=== PATIENT | female | born 1945 | race African-American/Black ===

== ENCOUNTER 2022-04-19 20:51 | Inpatient (IN) | payer MEDICARE ==
[2022-04-19] MEDS ORDERED: D5 1/2 NS w/20 mEq KCL 1,000 ML IV SCH (22:45)
[2022-04-19] MEDS ORDERED: Ondansetron PF 4 MG/2 ML Vial IVP PRN (22:45)
[2022-04-19] MEDS ORDERED: Acetaminophen 325 MG TAB PO PRN (22:51)
[2022-04-19 22:57] VITALS: BMI 29.0
[2022-04-19] MEDS ORDERED: Dextrose 5% in Water 1,000 ML IV PRN (23:12)
[2022-04-19] MEDS ORDERED: HumaLOG 300 UNITS/3 ML VIAL SC PRN ×2 (23:12)
[2022-04-19] MEDS ORDERED: Dextrose 50% Abboject 50 ML SYRINGE SLOW IVP PRN (23:12)
[2022-04-19 23:57] LABS: Anion Gap 15 mmol/L (10-20); BUN (Urea Nitrogen) 17 mg/dL (9.8-20.1); Calc. Creatinine Clearance 81 mL/min (70-130); Calcium 10.4 mg/dL (7.8-10.44); Carbon Dioxide 25 mmol/L (23-31); Chloride 110 mmol/L (98-107); Estimated GFR 91; Glucose 130 mg/dL (83-110); Sodium 146 mmol/L (136-145)
[2022-04-19] MEDS ORDERED: Vancomycin 1.5 GRAM/300 ML BAG 1.5 GM in Premix Bag 1 BAG IVPB SCH (23:59)
[2022-04-20] MEDS ORDERED: Dextrose 5 %-0.45 % NaCl 1,000 ML IV SCH (00:30)
[2022-04-20] MEDS ORDERED: Lactated Ringer's 1,000 ML IV SCH (00:45)
[2022-04-20] MEDS: Lactated Ringer's 1,000 ML IV SCH ×3 (00:54→17:20)
[2022-04-20] MEDS: Vancomycin 1 GM in Premix Bag 1 BAG IVPB SCH ×2 (06:05→17:20)
[2022-04-20 06:29] LABS: #Basophils 0.1 thou/uL (0.0-0.2); #Eosinphils 0.3 thou/uL (0.0-0.7); #Lymphocytes 1.7 thou/uL (1.20-3.40); #Monocytes 0.7 thou/uL (0.11-0.59); %Basophils 0.6 % (0.0-1.0); %Eosinophils 3.2 % (0.0-10.0); %Lymphocytes 16.1 % (21.0-51.0); %Monocytes 6.3 % (0.0-10.0); %Neutrophils 73.8 % (42.0-75.0); Hemoglobin 10.5 g/dL (12.0-16.0); Mean Corpuscular HGB CONC 30.8 g/dL (32.0-36.0); Mean Corpuscular Hemoglobin 29.9 pg (27.0-31.0); Mean Platelet Volume 10.6 fL (7.4-10.4); Platelet Count 235 thou/uL (130-400); RBC Distribution Width 14.9 % (11.5-14.5); Red Blood Cell (RBC) Count 3.52 mill/uL (4.20-5.40); White Blood Cell (WBC) Count 10.8 thou/uL (4.8-10.8)
[2022-04-20 06:33] LABS: Hemoglobin A1c 5.3 % (4.0-6.0)
[2022-04-20 06:47] LABS: Anion Gap 14 mmol/L (10-20); BUN (Urea Nitrogen) 15 mg/dL (9.8-20.1); Calc. Creatinine Clearance 86 mL/min (70-130); Calcium 10.1 mg/dL (7.8-10.44); Carbon Dioxide 24 mmol/L (23-31); Chloride 112 mmol/L (98-107); Estimated GFR 92; Glucose 121 mg/dL (83-110); Potassium 3.8 mmol/L (3.5-5.1); Sodium 146 mmol/L (136-145)
[2022-04-20] MEDS: Amlodipine 5 MG TAB PO SCH (09:33)
[2022-04-20] MEDS: Aspirin 325 MG TAB PO SCH (09:33)
[2022-04-20] MEDS: Famotidine 20 MG TAB PO SCH ×2 (09:33→20:53)
[2022-04-20] MEDS: Lisinopril 20 MG TAB PO SCH (09:35)
[2022-04-20] MEDS: Enoxaparin Sodium 40 MG/0.4 ML SYRINGE SC SCH (09:35)
[2022-04-20] MEDS: Atorvastatin Calcium 40 MG TAB PO SCH (20:53)
[2022-04-20] MEDS ORDERED: Cefepime 2 GM in Sodium Chloride 0.9% 100 ML IVPB SCH (22:00)
[2022-04-20] MEDS: Cefepime 2 GM in Sodium Chloride 0.9% 100 ML IVPB SCH (23:49)
[2022-04-21 06:40] LABS: Vancomycin, Trough 22.1 ug/mL
[2022-04-21 06:41] LABS: Anion Gap 15 mmol/L (10-20); BUN (Urea Nitrogen) 12 mg/dL (9.8-20.1); Calc. Creatinine Clearance 86 mL/min (70-130); Calcium 9.9 mg/dL (7.8-10.44); Carbon Dioxide 22 mmol/L (23-31); Chloride 107 mmol/L (98-107); Estimated GFR 92; Glucose 126 mg/dL (83-110); Potassium 3.8 mmol/L (3.5-5.1); Sodium 140 mmol/L (136-145)
[2022-04-21] MEDS: Lactated Ringer's 1,000 ML IV SCH ×2 (07:12→20:59)
[2022-04-21] MEDS: Vancomycin 1 GM in Premix Bag 1 BAG IVPB SCH ×2 (07:12→18:37)
[2022-04-21] MEDS: Lisinopril 20 MG TAB PO SCH (08:52)
[2022-04-21] MEDS: Amlodipine 5 MG TAB PO SCH (08:52)
[2022-04-21] MEDS: Enoxaparin Sodium 40 MG/0.4 ML SYRINGE SC SCH (08:52)
[2022-04-21] MEDS: Famotidine 20 MG TAB PO SCH ×2 (08:52→22:36)
[2022-04-21] MEDS: Cefepime 2 GM in Sodium Chloride 0.9% 100 ML IVPB SCH ×3 (08:52→23:50)
[2022-04-21] MEDS: Aspirin 325 MG TAB PO SCH (08:52)
[2022-04-21] MEDS: Atorvastatin Calcium 40 MG TAB PO SCH (22:36)
[2022-04-22 05:26] LABS: #Basophils 0.1 thou/uL (0.0-0.2); #Eosinphils 0.3 thou/uL (0.0-0.7); #Lymphocytes 1.5 thou/uL (1.20-3.40); #Monocytes 0.5 thou/uL (0.11-0.59); #Neutrophils 5.2 thou/uL (1.40-6.50); %Basophils 1.2 % (0.0-1.0); %Eosinophils 4.2 % (0.0-10.0); %Lymphocytes 19.9 % (21.0-51.0); %Neutrophils 67.7 % (42.0-75.0); Hemoglobin 11.8 g/dL (12.0-16.0); Mean Corpuscular HGB CONC 32.5 g/dL (32.0-36.0); Mean Corpuscular Hemoglobin 30.7 pg (27.0-31.0); Mean Corpuscular Volume 94.5 fL (78.0-98.0); Mean Platelet Volume 9.9 fL (7.4-10.4); Platelet Count 283 thou/uL (130-400); RBC Distribution Width 14.6 % (11.5-14.5); Red Blood Cell (RBC) Count 3.83 mill/uL (4.20-5.40); White Blood Cell (WBC) Count 7.7 thou/uL (4.8-10.8)
[2022-04-22 05:48] LABS: Vancomycin, Trough 29.3 ug/mL
[2022-04-22 05:50] LABS: Anion Gap 14 mmol/L (10-20); BUN (Urea Nitrogen) 9 mg/dL (9.8-20.1); Calc. Creatinine Clearance 92 mL/min (70-130); Calcium 10.3 mg/dL (7.8-10.44); Carbon Dioxide 27 mmol/L (23-31); Chloride 103 mmol/L (98-107); Estimated GFR 94; Glucose 151 mg/dL (83-110); Potassium 3.6 mmol/L (3.5-5.1); Sodium 140 mmol/L (136-145)
[2022-04-22] MEDS: Vancomycin 1 GM in Premix Bag 1 BAG IVPB SCH (06:33)
[2022-04-22] MEDS: Enoxaparin Sodium 40 MG/0.4 ML SYRINGE SC SCH (09:22)
[2022-04-22] MEDS: Cefepime 2 GM in Sodium Chloride 0.9% 100 ML IVPB SCH ×2 (09:22→17:28)
[2022-04-22] MEDS: Famotidine 20 MG TAB PO SCH ×2 (09:23→22:46)
[2022-04-22] MEDS: Lisinopril 20 MG TAB PO SCH (09:23)
[2022-04-22] MEDS: Amlodipine 5 MG TAB PO SCH (09:23)
[2022-04-22] MEDS: Aspirin 325 MG TAB PO SCH (09:23)
[2022-04-22] MEDS: Lactated Ringer's 1,000 ML IV SCH ×2 (09:24→17:28)
[2022-04-22 17:26] LABS: Vancomycin, Random 17.6 ug/mL (See Comment)
[2022-04-22] MEDS ORDERED: Vancomycin 0.01 GM in Premix Bag 1 BAG IVPB SCH (18:00)
[2022-04-22] MEDS: Vancomycin HCl 750 MG in Sodium Chloride 0.9% 250 ML 250 ML IVPB SCH (22:46)
[2022-04-22] MEDS: Atorvastatin Calcium 40 MG TAB PO SCH (22:46)
[2022-04-23] MEDS: Cefepime 2 GM in Sodium Chloride 0.9% 100 ML IVPB SCH ×2 (00:45→08:54)
[2022-04-23] MEDS: Lactated Ringer's 1,000 ML IV SCH ×2 (01:41→15:32)
[2022-04-23 07:01] LABS: Anion Gap 14 mmol/L (10-20); BUN (Urea Nitrogen) 16 mg/dL (9.8-20.1); Calc. Creatinine Clearance 94 mL/min (70-130); Calcium 10.3 mg/dL (7.8-10.44); Carbon Dioxide 26 mmol/L (23-31); Chloride 103 mmol/L (98-107); Estimated GFR 94; Glucose 156 mg/dL (83-110); Potassium 4.3 mmol/L (3.5-5.1); Sodium 139 mmol/L (136-145)
[2022-04-23] MEDS: Vancomycin HCl 750 MG in Sodium Chloride 0.9% 250 ML 250 ML IVPB SCH (07:22)
[2022-04-23] MEDS: Amlodipine 5 MG TAB PO SCH (08:53)
[2022-04-23] MEDS: Aspirin 325 MG TAB PO SCH (08:53)
[2022-04-23] MEDS: Famotidine 20 MG TAB PO SCH ×2 (08:54→23:23)
[2022-04-23] MEDS: Enoxaparin Sodium 40 MG/0.4 ML SYRINGE SC SCH (08:54)
[2022-04-23] MEDS: Lisinopril 20 MG TAB PO SCH (08:54)
[2022-04-23 09:15] LABS: #Basophils 0.1 thou/uL (0.0-0.2); #Eosinphils 0.4 thou/uL (0.0-0.7); #Lymphocytes 1.7 thou/uL (1.20-3.40); #Monocytes 0.8 thou/uL (0.11-0.59); #Neutrophils 5.2 thou/uL (1.40-6.50); %Basophils 0.7 % (0.0-1.0); %Eosinophils 4.6 % (0.0-10.0); %Lymphocytes 20.5 % (21.0-51.0); %Neutrophils 64.2 % (42.0-75.0); Hemoglobin 11.2 g/dL (12.0-16.0); Mean Corpuscular HGB CONC 31.9 g/dL (32.0-36.0); Mean Corpuscular Hemoglobin 30.2 pg (27.0-31.0); Mean Corpuscular Volume 94.8 fL (78.0-98.0); Platelet Count 282 thou/uL (130-400); RBC Distribution Width 14.7 % (11.5-14.5); Red Blood Cell (RBC) Count 3.72 mill/uL (4.20-5.40); White Blood Cell (WBC) Count 8.2 thou/uL (4.8-10.8)
[2022-04-23] MEDS: cefTRIAXone\\ROCEPHIN 1 GM in Sodium Chloride 0.9% 100 ML IVPB SCH (15:30)
[2022-04-23] MEDS: metroNIDAZOLE 500 MG TAB PO SCH ×2 (15:31→23:23)
[2022-04-23] MEDS ORDERED: Acetaminophen 500 MG TAB PO PRN (19:04)
[2022-04-23] MEDS: Sucralfate 1 GM TAB PO SCH (23:23)
[2022-04-23] MEDS: Atorvastatin Calcium 40 MG TAB PO SCH (23:23)
[2022-04-24 07:25] LABS: Anion Gap 14 mmol/L (10-20); BUN (Urea Nitrogen) 12 mg/dL (9.8-20.1); Calc. Creatinine Clearance 90 mL/min (70-130); Calcium 10.5 mg/dL (7.8-10.44); Carbon Dioxide 26 mmol/L (23-31); Chloride 104 mmol/L (98-107); Estimated GFR 93; Glucose 150 mg/dL (83-110); Potassium 3.9 mmol/L (3.5-5.1); Sodium 140 mmol/L (136-145)
[2022-04-24 09:26] LABS: #Basophils 0.1 thou/uL (0.0-0.2); #Eosinphils 0.3 thou/uL (0.0-0.7); #Lymphocytes 1.8 thou/uL (1.20-3.40); #Monocytes 0.8 thou/uL (0.11-0.59); #Neutrophils 4.8 thou/uL (1.40-6.50); %Lymphocytes 23.2 % (21.0-51.0); %Monocytes 9.8 % (0.0-10.0); Hemoglobin 11.2 g/dL (12.0-16.0); Mean Corpuscular HGB CONC 31.2 g/dL (32.0-36.0); Mean Corpuscular Hemoglobin 29.6 pg (27.0-31.0); Mean Corpuscular Volume 95.1 fL (78.0-98.0); Mean Platelet Volume 10.5 fL (7.4-10.4); Platelet Count 298 thou/uL (130-400); RBC Distribution Width 14.8 % (11.5-14.5); Red Blood Cell (RBC) Count 3.77 mill/uL (4.20-5.40); White Blood Cell (WBC) Count 7.8 thou/uL (4.8-10.8)
[2022-04-24] MEDS: Sucralfate 1 GM TAB PO SCH ×4 (10:20→20:57)
[2022-04-24] MEDS: Famotidine 20 MG TAB PO SCH ×2 (10:21→20:58)
[2022-04-24] MEDS: Enoxaparin Sodium 40 MG/0.4 ML SYRINGE SC SCH (10:22)
[2022-04-24] MEDS: metroNIDAZOLE 500 MG TAB PO SCH ×3 (10:22→20:57)
[2022-04-24] MEDS: Amlodipine 5 MG TAB PO SCH (10:24)
[2022-04-24] MEDS: Lisinopril 20 MG TAB PO SCH (10:24)
[2022-04-24] MEDS: Aspirin 325 MG TAB PO SCH (10:34)
[2022-04-24] MEDS: cefTRIAXone\\ROCEPHIN 1 GM in Sodium Chloride 0.9% 100 ML IVPB SCH (13:39)
[2022-04-24] MEDS ORDERED: Ondansetron PF 4 MG/2 ML Vial IVP PRN (14:12)
[2022-04-24] MEDS ORDERED: Lorazepam 0.5 MG TAB PO SCH (15:00)
[2022-04-24] MEDS: Atorvastatin Calcium 40 MG TAB PO SCH (20:57)
[2022-04-25 07:15] LABS: #Basophils 0.1 thou/uL (0.0-0.2); #Eosinphils 0.3 thou/uL (0.0-0.7); #Lymphocytes 1.4 thou/uL (1.20-3.40); #Monocytes 0.5 thou/uL (0.11-0.59); %Eosinophils 3.3 % (0.0-10.0); %Lymphocytes 17.3 % (21.0-51.0); %Monocytes 6.1 % (0.0-10.0); %Neutrophils 72.3 % (42.0-75.0); Hemoglobin 11.9 g/dL (12.0-16.0); Mean Corpuscular Hemoglobin 30.4 pg (27.0-31.0); Mean Corpuscular Volume 94.7 fL (78.0-98.0); Mean Platelet Volume 10.6 fL (7.4-10.4); Platelet Count 314 thou/uL (130-400); RBC Distribution Width 14.8 % (11.5-14.5); Red Blood Cell (RBC) Count 3.92 mill/uL (4.20-5.40); White Blood Cell (WBC) Count 8.2 thou/uL (4.8-10.8)
[2022-04-25 07:38] LABS: Anion Gap 16 mmol/L (10-20); BUN (Urea Nitrogen) 16 mg/dL (9.8-20.1); Calc. Creatinine Clearance 78 mL/min (70-130); Calcium 10.4 mg/dL (7.8-10.44); Carbon Dioxide 27 mmol/L (23-31); Chloride 102 mmol/L (98-107); Estimated GFR 88; Glucose 214 mg/dL (83-110); Potassium 4.6 mmol/L (3.5-5.1); Sodium 140 mmol/L (136-145)
[2022-04-25] MEDS: Aspirin 325 MG TAB PO SCH (08:45)
[2022-04-25] MEDS: Famotidine 20 MG TAB PO SCH ×2 (08:45→21:44)
[2022-04-25] MEDS: Sucralfate 1 GM TAB PO SCH ×4 (08:45→21:44)
[2022-04-25] MEDS: Lactated Ringer's 1,000 ML IV SCH ×4 (08:45→21:47)
[2022-04-25] MEDS: Amlodipine 5 MG TAB PO SCH (08:46)
[2022-04-25] MEDS: Lisinopril 20 MG TAB PO SCH (08:46)
[2022-04-25] MEDS: Enoxaparin Sodium 40 MG/0.4 ML SYRINGE SC SCH (08:46)
[2022-04-25] MEDS: Amoxicillin/Potassium Clav 400 mg/5 ml Oral Suspension PO SCH ×2 (11:23→21:47)
[2022-04-25] MEDS ORDERED: AMOXicillin 250 MG CAP PO SCH (12:00)
[2022-04-25] MEDS: Atorvastatin Calcium 40 MG TAB PO SCH (21:44)
[2022-04-26 06:57] LABS: Anion Gap 11 mmol/L (10-20); BUN (Urea Nitrogen) 15 mg/dL (9.8-20.1); Calc. Creatinine Clearance 94 mL/min (70-130); Calcium 10.1 mg/dL (7.8-10.44); Carbon Dioxide 29 mmol/L (23-31); Chloride 104 mmol/L (98-107); Estimated GFR 94; Glucose 156 mg/dL (83-110); Sodium 140 mmol/L (136-145)
[2022-04-26] MEDS: Amlodipine 5 MG TAB PO SCH (08:29)
[2022-04-26] MEDS: Famotidine 20 MG TAB PO SCH (08:29)
[2022-04-26] MEDS: Aspirin 325 MG TAB PO SCH (08:29)
[2022-04-26] MEDS: Amoxicillin/Potassium Clav 400 mg/5 ml Oral Suspension PO SCH (08:29)
[2022-04-26] MEDS: Sucralfate 1 GM TAB PO SCH (08:29)
[2022-04-26] MEDS: Lisinopril 20 MG TAB PO SCH (08:29)
[2022-04-26] MEDS: Enoxaparin Sodium 40 MG/0.4 ML SYRINGE SC SCH (08:29)
[2022-04-26 08:49] VITALS: BP 134/78; TEMP 97.6
== END 2022-04-26 11:33 | disposition home health service (06) | DRG 871 ==
LOC: T4-B 21:20
PROVIDERS: ADMIT Family Medicine; ATTEND Family Medicine
PROC: 3E03329 Introduction of Other Anti-infective into Peripheral Vein, Percutaneous Approach (ICD-10-PCS; principal; 2022-04-19)
PROC: 8E0ZXY6 Isolation (ICD-10-PCS; 2022-04-19)
DX: A41.4 Sepsis due to anaerobes (principal); L89.523 Pressure ulcer of left ankle, stage 3; U07.1 COVID-19; L03.116 Cellulitis of left lower limb; I69.354 Hemiplegia and hemiparesis following cerebral infarction affecting left non-dominant side; I50.32 Chronic diastolic (congestive) heart failure; E87.0 Hyperosmolality and hypernatremia; M86.8X6 Other osteomyelitis, lower leg; E11.69 Type 2 diabetes mellitus with other specified complication; I11.9 Hypertensive heart disease without heart failure; F32.A Depression, unspecified; R13.10 Dysphagia, unspecified; L89.620 Pressure ulcer of left heel, unstageable; L89.890 Pressure ulcer of other site, unstageable; Z79.84 Long term (current) use of oral hypoglycemic drugs; Z28.21 Immunization not carried out because of patient refusal; Z79.899 Other long term (current) drug therapy; Z79.1 Long term (current) use of non-steroidal anti-inflammatories (NSAID); I69.320 Aphasia following cerebral infarction; I69.391 Dysphagia following cerebral infarction; Z93.1 Gastrostomy status
CPT/HCPCS: 36415; 36416; 70551; 80048; 80202; 83036; 85025; 85652; 86140; 87070; 87077; 87186; 87205; 97139; J0692; J0696; J1650; J2405; J3370; J3490; J7050; J7120